=== PATIENT | male | born 1960 | race Caucasian/White ===

== ENCOUNTER 2019-06-05 12:29 | Emergency (ER) | payer SELFPAY ==
[~2019-06-05] VITALS: Ht 167.6 cm; Wt 63.5 kg
[2019-06-05 12:33] VITALS: BP_SYST 127
--- NOTE | 2019-06-05 12:36 | NUR ---
Patient to ER bed 5 to gown for evaluation. Side rails up.
[2019-06-05 12:58] LABS: BASOPHILS # (AUTO) 0.1 K/uL (0.0-0.2); BASOPHILS % (AUTO) 1.2 % (0.0-2.0); EOSINOPHILS # (AUTO) 0.1 K/uL (0.0-0.4); EOSINOPHILS % (AUTO) 1.3 % (0.0-4.0); HEMATOCRIT 39.3 % (36-54); HEMOGLOBIN 13.3 g/dL (14.0-18.0); LYMPHOCYTES # (AUTO) 1.1 K/uL (1.0-5.5); LYMPHOCYTES % (AUTO) 17.4 % (20.5-51.5); MEAN CORPUSCULAR HEMOGLOBIN 31 pg (27-31); MEAN CORPUSCULAR HGB CONC 34 % (32-36); MEAN CORPUSCULAR VOLUME 91 fL (79.0-98.0); MONOCYTES # (AUTO) 0.5 K/uL (0.0-1.0); MONOCYTES % (AUTO) 7.2 % (1.7-9.3); NEUTROPHILS # (AUTO) 4.7 K/uL (1.8-7.7); NEUTROPHILS % (AUTO) 72.9 % (40.0-70.0); PLATELET COUNT (AUTO) 251 K/uL (130-430); RED BLOOD CELL COUNT(AUTO) 4.33 MIL/uL (4.2-6.2); RED CELL DISTRIBUTION WIDTH 13.9 % (9.0-15.0); WHITE BLOOD COUNT (AUTO) 6.5 K/uL (4.8-10.8)
--- NOTE | 2019-06-05 13:00 | NUR ---
Patient brought in by law enforcement for medical clearance. Officer stated pt has SI, but patient denies any intention to hurt himeself or others. Pt denies pain. Pt speaks Azerbaijani and is cooperative. Pt responds to questions appropriately, no delay noted.
[2019-06-05 13:08] LABS: ANION GAP 6 (5-15); CALCIUM 8.6 mg/dL (8.4-11.0); CHLORIDE 100 mmol/L (98-107); CREATININE 0.98 mg/dL (0.55-1.30); GFR AFRICAN AMERICAN 101 mL/min (>90); GLUCOSE 83 mg/dL (70-99); POTASSIUM 3.8 mmol/L (3.5-5.1); SODIUM SERUM 136 mmol/L (136-145); UREA NITROGEN, BLOOD 16 mg/dL (8-21)
[2019-06-05 13:13] LABS: ALANINE AMINOTRANSFERASE 20 U/L (12-78); ALBUMIN 3.7 g/dL (3.4-4.8); ASPARTATE AMINOTRANSFERASE 22 U/L (10-37); TOTAL BILIRUBIN 0.4 mg/dL (0.0-1.0)
[2019-06-05 13:14] LABS: ACETAMINOPHEN < 1 ug/mL (1-30); ALCOHOL, BLOOD < 3 mg/dL (<10)
--- NOTE | 2019-06-05 13:19 | NUR ---
ER Dr. Ramirez at bedside examining patient.
--- NOTE | 2019-06-05 14:30 | NUR ---
Patient calm and cooperative. No distress noted. Continuing to monitor.
--- NOTE | 2019-06-05 15:30 | NUR ---
Patient offered meal tray and hydration. Patient given urinal to void. Collection obtained and sent to labratory.
[2019-06-05 15:42] LABS: BARBITURATE, URINE NEGATIVE (NEG <=200); BENZODIAZEPINE, URINE NEGATIVE (NEG <=150); CANNABINOID, URINE NEGATIVE (NEG <=50); COCAINE, URINE NEGATIVE (NEG <=150); METHAMPHETAMINES SCREEN,URINE NEGATIVE (NEG <=500); OPIATE, URINE NEGATIVE (NEG <=100); PHENCYCLIDINE SCREEN,URINE NEGATIVE (NEG <=25); UR TRICYCLIC ANTIDEPRESSANTS NEGATIVE (NEG <=300); URINE AMPHETAMINE NEGATIVE (NEG <=500); URINE METHADONE NEGATIVE (NEG <=200); URINE OXYCODONE SCREEN NEGATIVE (NEG <=100); URINE PROPOXYPHENE SCREEN NEGATIVE (NEG <=300)
--- NOTE | 2019-06-05 16:11 | NUR ---
PER KAREN GARCIA, SPOKE TO [facility], REGARDING PT PLACEMENT. FAX: [phone]
--- NOTE | 2019-06-05 16:29 | NUR ---
Patient completed 100% of safety meal given. Patient sitting up in bed. Patient appears calm with no complaint of pain.
--- NOTE | 2019-06-05 17:30 | NUR ---
Patient sleeping in bed. Addendum: 06/05/19 at 1808 by YINGK Side rails up.
--- NOTE | 2019-06-05 19:00 | NUR ---
Sitter bedside, Pt in stable condition.
--- NOTE | 2019-06-05 21:00 | NUR ---
VSS no s/s of acute distress. Resting on gurney rails up
--- NOTE | 2019-06-05 23:00 | NUR ---
Pt resting quietly, even and non-labored respirations. NAD. Addendum: 06/06/19 at 0753 by EARLINE Sitter at bedside.
--- NOTE | 2019-06-06 03:00 | NUR ---
Pt resting quietly, even and non-labored respirations. NAD. Sitter at bedside.
--- NOTE | 2019-06-06 05:00 | NUR ---
Pt resting quietly, even and non-labored respirations. NAD. Sitter at bedside.
--- NOTE | 2019-06-06 08:55 | NUR ---
Social Service Note: PIPE WELDER was called to ED to meet with pt for homeless resources. PIPE WELDER met with pt at bedside; pt appears alert/oriented x4. Pt states that he has been homeless for 2 years. Pt states that he stays anywhere he can. PIPE WELDER asked pt if he stays in the [facility], pt stated no. PIPE WELDER asked pt if was open to going to [facility] ([facility]- [address] [place] [address]); pt states that he is not sure but he would check it out. PIPE WELDER provided pt with homeless resources. PIPE WELDER asked pt about his clothing; pt states that he does not have a change of clothes, PIPE WELDER asked security to provide pt with pants and a shirt; clothing was provided by security. [facility] PIPE WELDER will speak with housekeeper nanny regarding transportation.
--- NOTE | 2019-06-06 09:15 | NUR ---
Social Service Note: CASH REGISTER REPAIRER spoke with [employer] ([phone]); transportation will be $30 from hospital to [facility] [place] [address]). [employer] states that they will be at the hospital in 20-30 minutes. CASH REGISTER REPAIRER obtained $30 from warehouse associate driver; money provided to pt for taxi. CASH REGISTER REPAIRER updated unit leader of taxi being called and estimated olive picker time.
--- NOTE | 2019-06-06 10:35 | NUR ---
Patient dressed and sitting at on bed. Patient waiting for transport. No signs of distress noted.
[2019-06-06 10:57] VITALS: BP_SYST 128
--- NOTE | 2019-06-06 10:57 | NUR ---
Patient given written and verbal discharge instructions and verbalizes understanding. ER MD discussed with patient the results and treatment provided. Patient in stable condition. ID arm band removed.Patient educated on pain management and to follow up with PMD. Pain Scale 0/10. Opportunity for questions provided and answered. Medication side effect fact sheet provided.
== END 2019-06-06 10:57 | disposition short-term general hospital (02) ==
LOC: SED 12:29
DX: R45.851 Suicidal ideations (principal); Z59.0 Homelessness
CPT/HCPCS: 36415; 80053; 80307; 85025; 93005; 99285; G0480; G0481; G0482